=== PATIENT | male | born 1980 | race African-American/Black ===

== ENCOUNTER 2016-12-09 19:58 | Outpatient (CLI) | payer OTHER | END 2016-12-09 20:10 | disposition short-term general hospital (02) | LOC: AMB 19:58 | DX: M25.562 Pain in left knee (principal); V48.0XXA Car driver injured in noncollision transport accident in nontraffic accident, initial encounter; Y92.414 Local residential or business street as the place of occurrence of the external cause | CPT/HCPCS: A0425; A0427 ==

== ENCOUNTER 2016-12-09 20:15 | Emergency (ER) | payer OTHER ==
[~2016-12-09] VITALS: Ht 167.6 cm; Wt 61.2 kg
[2016-12-09 20:36] VITALS: BP 114/73
[2016-12-09 21:32] VITALS: TEMP 98.9
== END 2016-12-09 21:32 | disposition home or self-care (01) ==
LOC: ED 20:15
DX: S80.02XA Contusion of left knee, initial encounter (principal)
CPT/HCPCS: 96372; 99283; J1885